=== PATIENT | female | born 1980 | race Caucasian/White ===

== ENCOUNTER 2016-11-04 05:21 | Emergency (ER) | payer BC ==
[~2016-11-04] VITALS: Ht 167.6 cm; Wt 106.0 kg
[~2016-11-04 05:21] MED LIST: IBUP800 PO; LEVO112T2 PO; METF500 PO; TRAM50 PO
[2016-11-04 05:25] VITALS: BP 151/98; PULSE 98; RESP 18; TEMP 97.9; O2SAT 100
[2016-11-04 05:40] VITALS: BP_SYST 140; BP_SYST 149; BP_DIAS 83; BP_DIAS 84; PULSE 95; RESP 18; O2SAT 100
--- NOTE | 2016-11-04 05:42 | PD ---
HPI Chief Complaint: Musculoskeletal Complaint Time Seen by Provider: 05:37 Travel History International Travel<30 days: No Contact w/Intl Traveler<30days: No Traveled to known affect area: No History of Present Illness HPI 36 year old female presents to the emergency department by private transportation the care of her spouse for evaluation of left-sided chest pain 3 days. Patient reports that prior to that she had 3 days of tightness in her chest. Patient notes the pain is worsened by taking a deep breath and movement. Patient denies fever chills cough congestion or hemoptysis. Patient states pain is worsened by movement and by taking a deep breath. Patient has taken Aleve without symptomatic relief. Patient denies personal history of CAD hypertension dyslipidemia or tobaccoism. Patient denies personal history of PE or DVT. Patient does not take control pills and does not smoke cigarettes. Patient is not reporting lower extremity pain or swelling and no recent long distance travel protracted bedrest or surgical procedure. Patient denies any known injury or trauma. Patient denies any skin rash to the chest wall. Patient's had no abdominal pain. Patient's had no nausea or vomiting. Patient states pain does radiate from the left chest wall to the axilla and to the left scapula. Patient denies any neck pain. There is no report of upper or lower extremity numbness tingling or weakness. [facility] Past Medical History Narrative Medical Anxiety -induced hypertension pneumonia hypothyroidism D&C tubal ligation; occasional alcohol use no tobacco use; nursing notes reviewed Blood Disorders: No Anxiety: Yes Cancer: No Cardiovascular Problems: No Diabetes: No Diminished Hearing: No Endocrine: Yes Gastrointestinal Disorders: Yes Genitourinary: No Headaches: Yes Hepatitis: No Hiatal Hernia: No Hypertension: Yes (pre eclampsia) Immune Disorder: No Neurologic: Yes Psychiatric: No Reproductive: No Immunizations Current: Yes Pneumonia: Yes Thyroid Disease: Yes : 2 Para: 2 Dilation and Curettage (D&C): Yes (X2) Tubal Ligation: Yes (2014) Past Surgical History Abdominal Surgery: Yes (LAPAROSCOPY FALLOPIAN TUBES) Section: Yes (x2) Gynecologic Surgery: Yes (D&C) Pacemaker: No Other Surgery: Yes Social History Alcohol Use: Yes (TWICE A YEAR) Tobacco Use: No Substance Use: No Allergies-Medications (Allergen,Severity, Reaction): Coded Allergies: Codeine (Verified Allergy, Severe, Rash, 11/04/16) Percocet (Unverified Allergy, Severe, CHILLS, COLD SWEATS, NAUSEA, LIGHTHEADEDNESS, 11/04/16) Reported Meds & Prescriptions Reported Meds & Active Scripts Active Reported Levothyroxine (Levothyroxine Sodium) 200 Mcg Tab 212 Mcg PO DAILY Buspirone (Buspirone HCl) 7.5 Mg Tab 7.5 Mg PO DAILY Review of Systems Except as stated in HPI: all other systems reviewed are Neg Physical Exam Narrative GENERAL: Well-developed well-nourished female in no acute distress no respiratory distress SKIN: Warm and dry. HEAD: Normocephalic. EYES: No scleral icterus. No injection or drainage. NECK: Supple, trachea midline. No JVD or lymphadenopathy. CARDIOVASCULAR: Regular rate and rhythm without murmurs, gallops, or rubs. Chest wall: No rash no vesicular rash no erythema no ecchymosis no abrasion no crepitus no bony point tenderness no tenderness to direct palpation along the left anterior chest wall RESPIRATORY: Breath sounds equal bilaterally. No accessory muscle use. GASTROINTESTINAL: Abdomen soft, non-tender, nondistended. MUSCULOSKELETAL: No cyanosis, or edema. BACK: Nontender without obvious deformity. No CVA tenderness. Data Data Last Documented VS Vital Signs Date Time Temp Pulse Resp B/P Pulse Ox O2 Delivery O2 Flow Rate FiO2 11/04/16 05:40 95 18 149/83 100 Room Air 140/84 11/04/16 05:25 97.9 Orders Electrocardiogram (11/04/16 05:37) Basic Metabolic Panel (Bmp) (11/04/16 05:37) Ckmb (Isoenzyme) Profile (11/04/16 05:37) Complete Blood Count With Diff (11/04/16 05:37) D-Dimer (11/04/16 05:37) Magnesium (Mg) (11/04/16 05:37) Prothrombin Time / Inr (Pt) (11/04/16 05:37) Act Partial Throm Time (Ptt) (11/04/16 05:37) Troponin I (11/04/16 05:37) Chest, Single Ap (11/04/16 05:37) Ecg Monitoring (11/04/16 05:37) Bilateral Bp Monitoring (11/04/16 05:37) Iv Access Insert/Monitor (11/04/16 05:37) Oximetry (11/04/16 05:37) Ed Urine Pregnancytest Poc (11/04/16 05:37) Ketorolac Inj (Toradol Inj) (11/04/16 05:45) Labs Laboratory Tests Test 11/04/16 06:10 White Blood Count 5.3 TH/MM3 Red Blood Count 4.93 MIL/MM3 Hemoglobin 13.5 GM/DL Hematocrit 39.6 % Mean Corpuscular Volume 80.3 FL Mean Corpuscular Hemoglobin 27.4 PG Mean Corpuscular Hemoglobin 34.1 % Concent Red Cell Distribution Width 13.1 % Platelet Count 255 TH/MM3 Mean Platelet Volume 8.4 FL Neutrophils (%) (Auto) 56.2 % Lymphocytes (%) (Auto) 32.6 % Monocytes (%) (Auto) 7.1 % Eosinophils (%) (Auto) 1.9 % Basophils (%) (Auto) 2.2 % Neutrophils # (Auto) 3.0 TH/MM3 Lymphocytes # (Auto) 1.7 TH/MM3 Monocytes # (Auto) 0.4 TH/MM3 Eosinophils # (Auto) 0.1 TH/MM3 Basophils # (Auto) 0.1 TH/MM3 CBC Comment DIFF FINAL Differential Comment Prothrombin Time 10.7 SEC Prothromb Time International 1.0 RATIO Ratio Activated Partial 29.8 SEC Thromboplast Time D-Dimer Quantitative (PE/DVT) 0.43 MG/L FEU Sodium Level 141 MEQ/L Potassium Level 4.0 MEQ/L Chloride Level 109 MEQ/L Carbon Dioxide Level 23.8 MEQ/L Anion Gap 8 MEQ/L Blood Urea Nitrogen 14 MG/DL Creatinine 0.77 MG/DL Estimat Glomerular Filtration 85 ML/MIN Rate Random Glucose 98 MG/DL Calcium Level 8.9 MG/DL Magnesium Level 1.8 MG/DL Total Creatine Kinase 31 U/L Troponin I LESS THAN 0.02 NG/ML MDM Medical Decision Making Medical Screen Exam Complete: Yes Emergency Medical Condition: Yes Medical Record Reviewed: Yes Interpretation(s) EKG: Sinus rhythm rate 99 incomplete right bundle branch block no acute ST elevation or injury pattern change noted d-dimer: 0.43, not elevated coags: grossly wnl cbc: wnl metabolic panel: grossly wnl cxr: nad ck: 31, not elevated; troponin I: less than 0.02, not elevated Last Impressions Chest X-Ray 11/04/16 0537 Signed Impressions: Service Date/Time: Friday, November 04, 2016 05:53 - CONCLUSION: Normal examination. Lalito Ray MD CBC & BMP Diagram 11/04/16 06:10 Vital Signs Date Time Temp Pulse Resp B/P Pulse Ox O2 Delivery O2 Flow Rate FiO2 11/04/16 05:40 95 18 149/83 100 Room Air 140/84 11/04/16 05:40 Room Air 11/04/16 05:40 Room Air 11/04/16 05:25 97.9 98 18 151/98 100 Differential Diagnosis Chest pain, musculoskeletal pain, pleurisy, costochondritis, PE, CAD, shingles, atypical biliary colic, cervical radiculopathy Narrative Course Patient placed on monitoring and evaluation advisor IV access obtained specimens collected and sent for resulting EKG ordered patient administered Toradol 30 mg IV resulted labs grossly wnl; d-dimer not elevated; cardiac enzymes pendnig @ 6:40 am Diagnosis Primary Impression: Anterior chest wall pain Referrals: Primary Care Physician call for appointment Patient Instructions: General Instructions Departure Forms: Tests/Procedures, Work Release Special Instructions: modified duty x 2 days: no use of left arm or lifting greater than 5 pounds x 2 days Additional Instructions: Apply moist heat to chest wall and left upper extremity intermittently as needed Take pain medication as prescribed as needed Follow-up with primary care provider Return to the emergency department for any concerns or change in condition Med/Other Pt SpecificInfo: Prescription(s) given Scripts Tramadol 50 Mg Tab50 Mg PO Q6H PRN (PAIN) #12 TAB Ref 0 Prov:Joselyn Hamilton MD 11/04/16 Ibuprofen 800 Mg [id number] Mg PO Q8H PRN (PAIN GREATER THAN 5) #12 TAB Ref 0 Prov:Joselny Hamilton MD 11/04/16 Disposition: 01 DISCHARGE HOME Condition: Stable Joselyn Hamilton MD Nov 04, 2016 05:42
[2016-11-04] MEDS ORDERED: KETOROLAC TROMETHAMINE 30 MG/ML (IVP) VIAL IV PUSH ONE (05:45)
--- NOTE | 2016-11-04 06:00 | RADRPT ---
EXAM DATE/TIME: 11/04/2016 05:53 [facility] COMPARISON: CHEST SINGLE AP, July 20, 2015, 5:46. INDICATIONS : Left sided chest pain for 3 days MEDICAL HISTORY : None. SURGICAL HISTORY : None. ENCOUNTER: Initial ACUITY: 3 days PAIN SCORE: 8/10 LOCATION: Left chest FINDINGS: A single view of the chest demonstrates the lungs to be symmetrically aerated without evidence of mas s, infiltrate or effusion. The cardiomediastinal contours are unremarkable. Osseous structures are intact. CONCLUSION: Normal examination. Lalito Ray MD on November 04, 2016 at 5:59 Board Certified Radiologist. This report was verified electronically.
[2016-11-04 06:19] LABS: BASOPHIL # 0.1 TH/MM3 (0-0.2); BASOPHIL % 2.2 % (0.0-2.0); EOSINOPHIL # 0.1 TH/MM3 (0-0.4); EOSINOPHIL % 1.9 % (0.0-4.0); HEMATOCRIT 39.6 % (35.0-46.0); HEMO FLAGS DIFF FINAL; LYMPH % 32.6 % (9.0-44.0); LYMPHOCYTE # 1.7 TH/MM3 (1.0-4.8); MEAN CELL VOLUME 80.3 FL (80.0-100.0); MEAN CORPUSCULAR HEMOGLOBIN 27.4 PG (27.0-34.0); MEAN CORPUSCULAR HGB CONC 34.1 % (32.0-36.0); MONO % 7.1 % (0.0-8.0); NEUT % 56.2 % (16.0-70.0); PLATELET COUNT 255 TH/MM3 (150-450); RED BLOOD COUNT 4.93 MIL/MM3 (4.00-5.30); RED CELL DISTRIBUTION WIDTH 13.1 % (11.6-17.2); WHITE BLOOD COUNT 5.3 TH/MM3 (4.0-11.0)
[2016-11-04 06:26] LABS: CHLORIDE 109 MEQ/L (98-107); SODIUM (NA) 141 MEQ/L (136-145)
[2016-11-04] MEDS ORDERED: LEVO200T4 PO (06:28)
[2016-11-04] MEDS ORDERED: BUSP1TAB PO (06:28)
[2016-11-04 06:29] LABS: ANION GAP 8 MEQ/L (5-15); BICARBONATE 23.8 MEQ/L (21.0-32.0); BLOOD UREA NITROGEN 14 MG/DL (7-18); MAGNESIUM 1.8 MG/DL (1.5-2.5)
[2016-11-04 06:32] LABS: APTT (PATIENT) 29.8 SEC (24.3-30.1); GLOMERULAR FILTRATION RATE 85 ML/MIN (>89); PROTHROMBIN TIME - PATIENT 10.7 SEC (9.8-11.6)
[2016-11-04 06:41] LABS: CREATINE KINASE 31 U/L (26-192)
[2016-11-04] MEDS ORDERED: TRAM50TA PO (06:58)
[2016-11-04] MEDS ORDERED: IBUP800T23 PO (06:58)
[2016-11-04 07:00] VITALS: BP 135/92
--- NOTE | 2016-11-05 10:51 | EKG ---
Date Performed: 11/04/2016 Time Performed: 05:45:27 PTAGE: 36 years EKG: Sinus rhythm LOW QRS VOLTAGE IN PRECORDIAL LEADS INCOMPLETE RIGHT BUNDLE BRANCH BLOCK BORDERLINE ECG PREVIOUS TRACING : 07/20/2015 05.52 DOCTOR: Matthew Julian Interpretating Date/Time 11/05/2016 10:50:43
== END 2016-11-04 07:10 | disposition home or self-care (01) ==
LOC: PHED 05:21
DX: R07.89 Other chest pain (principal); I45.10 Unspecified right bundle-branch block; E03.9 Hypothyroidism, unspecified
CPT/HCPCS: 71010; 80048; 82550; 83735; 84484; 85025; 85379; 85610; 85730; 93005; 96374; 99285; J1885